=== PATIENT | female | born 1950 | race Caucasian/White ===

== ENCOUNTER 2018-11-19 15:37 | Emergency (ER) | payer OTHER ==
[~2018-11-19] VITALS: Ht 177.8 cm; Wt 82.3 kg
[2018-11-19] MEDS ORDERED: TRAVATAN Z2.5 ML OPHTHALMIC (16:05)
[2018-11-19] MEDS ORDERED: MOBIC15 MG PO (17:15)
[2018-11-19 17:24] VITALS: BP 159/93
--- NOTE | 2018-11-20 10:02 | EKG ---
[place] [address] [address] [facility] [place] [employer] [address] ELECTROCARDIOGRAM REPORT Name: JOEL PANG Room #: [facility]P [facility]ENTER[id number] Admission: 11/19/18 Attend Phys: Discharge: 11/19/18 Date of : 48 Report #: [id number] THIS REPORT FOR: //name// [facility] ED Test Date: 2018-11-19 Test Time: 16:44:51 Pat Name: JOEL PANG Department: Room: Gender: F [employer] Machine: CHIDI : 1950 Requested By: Iain Gupta Order Number: [id number] MD: Nikolay Crum Measurements Intervals [place] Rate: 68 P: 53 MT: 158 QRS: 11 QRSD: 111 T: 15 QT: 408 QTc: 434 Interpretive Statements Sinus rhythm RSR' in V1 or V2, right VCD No previous ECG available for comparison Electronically Signed On 11-20-2018 10:02:30 SENIOR ANIMATOR by Nikolay Crum [email or web address] <ELECTRONICALLY SIGNED> By: Nikolay Crum MD, [facility] 11/20/18 1002 1644 1644 Nikolay Crum MD, FACC /EPI
== END 2018-11-19 17:25 | disposition home or self-care (01) ==
LOC: ER 15:37
DX: R07.89 Other chest pain (principal); Z88.8 Allergy status to other drugs, medicaments and biological substances; Z98.890 Other specified postprocedural states; Z90.49 Acquired absence of other specified parts of digestive tract; Z90.89 Acquired absence of other organs